=== PATIENT | female | born 1980 | race Caucasian/White ===

== ENCOUNTER 2016-07-23 14:24 | Observation (INO) | payer MEDICAID ==
[2016-07-23 14:24] VITALS: BMI 21.6
[2016-07-23] MEDS ORDERED: NS 1,000 ML IV ONE (14:33)
--- NOTE | 2016-07-23 15:07 | EDPRACDOC ---
- General Information Chief Complaint: Overdose Stated Complaint: OVERDOSE Time Seen by Provider: 07/23/16 14:29 Information Source: [employer] Maintenance [employer]ic Mode of Arrival: Ambulance Home Medications: Home Medications Alprazolam [Xanax] 1 mg PO QID PRN 12/14/15 Sertraline HCl [Zoloft] 150 mg PO DAILY 12/14/15 Oxycodone Immediate Release [Oxycodone Immediate Release (OxyIR)] 5 - 15 mg PO Q4H PRN #30 tab 04/10/16 Promethazine [Phenergan] 25 mg PO Q6 PRN #14 tab 04/10/16 Unobtainable 0 mg PO .SEE COMMENTS 07/23/16 Allergies/Adverse Reactions: Allergies Allergy/AdvReac Type Severity Reaction Status Date / Time codeine Allergy Mild Edema-Local Verified 07/23/16 14:57 ized morphine Allergy Mild Rash-Locali Verified 07/23/16 14:57 zed - History of Present Illness Onset: 1300 HPI: PT TOOK AN UNKN AMT OF NEURONTIN TODAY AROUND 1300. BOYFRIEND CALLED EMS. HE TOLD THE BELT LINE FEEDER THAT SHE WAS THREATENING SUICIDE ALL DAY. SHE ALSO RIPPED THE HOUSE APART PRIOR TO TAKING THE PILLS. PT IS UNABLE TO GIVE ANY HX SHE IS UNRESPONSIVE NOW. Reason for Seeking Treatment: 911 Call Presents With: Reports: Suicidal Ideation Expresses: Reports: Suicidal Plan Suicidal Plan: Reports: Overdose Stressors: Reports: None - Treatment Prior to ED Arrival Reported Medications/Treatment HOUSE MANAGER IV No Comment ATTEMPTED WITHOUT SUCCESS ED Past Medical History - Patient Medical History Psychological History: Reports: Depression, Anxiety, Substance Use Disorder ( Opioid dependence / IVDA) Surgical History: Reports: Other (BTL) - Social Medical History Smoking Status: Heavy tobacco smoker (5 or more cigarettes/day or daily pipe/ cigar) Social History: Reports: Substance Use Disorder (Opioid dependence / IVDA) Substance Abuse: Illicit Drugs (TRACK RAPHAEL) Lives In: Home EDM Review of Systems - Review of Systems ROS Unobtainable: Yes Review of systems cannot be obtained due to the patient's medical condition - Physical Exam Constitutional: Decreased Consciousness Oriented to: Unable to Test Last recorded Vital Signs: Last Vital Signs Temp 97.7 F 07/23/16 14:48 Pulse 79 07/23/16 15:02 Resp 18 07/23/16 15:02 BP 102/72 07/23/16 14:48 Pulse Ox 100 07/23/16 15:02 Oxygen Pulse Oxygen Saturation 100 O2 Device Room Air Oxygen Flow Rate Fraction of Inspired Oxygen ( FIO2) - HEENT Head: Normal ( normocephalic) Eye Exam: Normal (PERRL, EOMI, Sclera white) Oropharynx: Normal (Pharynx:Moist without exudate,Gums-no swelling) ENT EAC: Normal TMJ: Normal Nose: No Symptoms Reported (septum midline) Neck: Normal (FROM, trachea at midline) - Respiratory/Cardiovascular Respiratory: Normal - CTA (BBS clear to auscultation without adventitious sounds ) Cardiovascular: Normal (RRR without murmur, gallop or rub) - GI Auscultation: Normal (NABS) Palpation: Normal (Soft,No rebound or guarding, non distended) Tenderness: Non tender Cao's Sign: Negative - Musculoskeletal Back: Normal (Non-Tender) Extremities: Normal (Normal tone, Pulses 2+ No cyanosis or edema, FROM) - Integumentary Skin: Other (TRACK RAPHAEL ARMS AND LEGS) Lymphatics: Normal - Neurologic Memory Impaired: Unable to Test Motor Function: Unable to Test Cranial Nerve: Unable to Test - Results 07/23/16 15:05 07/23/16 15:05 - EKG EKG #1 EKG Time: 14:34 -: Yes EKG interpreted by me Rate: bpm: 84 [place]: Normal Rhythm: NSR Block: None Hypertrophy: None ST: Normal - Departure Yes I personally saw and evaluated the patient. Condition: Fair Final Diagnosis: Polysubstance abuse, Suicidal ideation, Intentional drug overdose Instructions: Adult Overdose Education/Counseling Given To: Patient Education/Counseling Given Regarding: Diagnosis, Treatment, Follow Up
[2016-07-23 15:20] LABS: AUTOMATED BASOPHIL 1.5 % (0-2); AUTOMATED EOSINOPHIL 1.5 % (0-5); AUTOMATED LYMPH 27.2 % (17-44); AUTOMATED MONOCYTE 12.1 % (3-10); AUTOMATED NEUTROPHIL 57.7 % (45-76); MPV 7.6 fL (7.4-10.4)
[2016-07-23 15:23] LABS: ALL NEG? NO
[2016-07-23 15:28] LABS: BLOOD UREA NITROGEN 19 MG/DL (7-17); CALCIUM 9.4 MG/DL (8.4-10.2); CALCULATED OSMOLALITY 275 MOs/Kg (270-290); CHLORIDE 105 mEq/L (98-107); ETOH-MGDL < 10 mg/dL; GLUCOSE 91 MG/DL (70-99); SODIUM LEVEL 142 mEq/L (137-146); TOTAL PROTEIN 8.5 G/DL (6.3-8.2)
[2016-07-23 15:30] LABS: LEUKOCYTES/URINE NEG (NEGATIVE); NITRITE/URINE NEG (NEGATIVE); RBC/URINE 0-2 (0-5); URINE OCCULT BLOOD NEG (NEG/TRACE); WBC/URINE 0-2 (0-5)
[2016-07-23 15:32] LABS: MDMA* *POSITIVE* (NEGATIVE); METHAMPHETAMINES *POSITIVE* (NEGATIVE); OXYCODONE NEG (NEGATIVE)
[2016-07-23] MEDS ORDERED: ACETAMINOPHEN 325 MG/TAB TABLET PO PRN (15:40)
[2016-07-23] MEDS ORDERED: IBUPROFEN 400 MG TAB PO PRN (15:40)
[2016-07-23] MEDS ORDERED: GUAIFENESIN 200 MG/10 ML UDC PO PRN (15:40)
[2016-07-23] MEDS ORDERED: ONDANSETRON HCL 4 MG ODT TAB PO PRN (15:40)
[2016-07-23] MEDS ORDERED: MAGNESIUM HYDROXIDE 30 ML BOTTLE PO PRN (15:40)
[2016-07-23] MEDS ORDERED: Docusate Sodium 100 MG CAP PO PRN (15:40)
[2016-07-23] MEDS: NICOTINE 21 MG PATCH TOP SCH (18:46)
[2016-07-23] MEDS ORDERED: LORAZEPAM 1 MG TAB PO PRN (22:37)
[2016-07-24] MEDS ORDERED: ZIPRASIDONE 20 MG VIAL IM PRN (04:31)
--- NOTE | 2016-07-24 06:40 | EDTUNOTE ---
- SOAP Note Patient Problems: Active Problems Intentional drug overdose (Acute) T50.902A Polysubstance abuse (Acute) F19.10 Suicidal ideation (Acute) R45.851 Time Seen By Provider: 05:00 SOAP Note: S: OD on Nuerontin, SI and IVC, medically cleared and placed in [facility] where Pt became reportedly combative, uncooperative and inappropriate. Sent to ED. O: A/O x 3, Heart RRR, lungs CTA no resp distress, yelling, demanding xanax, inappropriate and threatening towards staff A: SI under IVC, now with escalating inappropriate behavior P: Jasmina IM and re-evaluate in the ED
[2016-07-24] MEDS ORDERED: SERTRALINE HCL 100 MG TAB PO SCH (09:00)
[2016-07-24] MEDS: NICOTINE 21 MG PATCH TOP SCH (16:55)
[2016-07-24 18:47] VITALS: BP 113/69; PULSE 100; TEMP 98.4
== END 2016-07-24 18:35 ==
LOC: ED 14:24 → EDINP 15:40 → TUOBSINP 17:02 → EDINP 07-24 04:22 → TUOBSINP 07-24 10:37
PROVIDERS: ADMIT Emergency Medicine; ATTEND Emergency Medicine
DX: T42.6X2A Poisoning by other antiepileptic and sedative-hypnotic drugs, intentional self-harm, initial encounter (principal); F19.10 Other psychoactive substance abuse, uncomplicated; F32.9 Major depressive disorder, single episode, unspecified; F41.9 Anxiety disorder, unspecified; F17.200 Nicotine dependence, unspecified, uncomplicated; Z79.899 Other long term (current) drug therapy
CPT/HCPCS: 36415; 80053; 80307; 80329; 81001; 81025; 85025; 93005; 96360; 96361; 96372; 99285; G0378; J3486; J3490